=== PATIENT | male | born 1975 | race Caucasian/White ===

== ENCOUNTER 2020-08-11 19:08 | Emergency (ER) | payer BC, OTHER ==
--- NOTE | 2020-08-11 19:37 | EDM.PDOC ---
ED HPI GENERAL MEDICAL PROBLEM - General Chief Complaint: Neuro Symptoms/Deficits Stated Complaint: numbness to left side of face Time Seen by Provider: 08/11/20 19:19 Source of Information: Reports: Patient History Limitations: Reports: No Limitations - History of Present Illness INITIAL COMMENTS - FREE TEXT/NARRATIVE: The patient presents with left sided facial numbness and weakness. He says this all started on Tuesday. He says his face is not really numb but it feels funny. He also cannot close his eye fully on the left. He drools sometimes when drinking water. He has no fever, chills, cough, chest pain, shortness of breath, abdominal pain, nausea or vomiting. He has no numbness or weakness in his arms or legs. He has no headache. He has no double vision or blurred vision. This has never happened to him before. He has no medical problems. Onset: Gradual Duration: Day(s): (4) Severity: Moderate Improves with: Reports: None Worsens with: Reports: None Associated Symptoms: Reports: No Other Symptoms - Related Data Allergies Allergy/AdvReac Type Severity Reaction Status Date / Time No Known Allergies Allergy Verified 08/11/20 19:17 Home Meds: Home Meds predniSONE [Prednisone] 60 mg PO DAILY #21 tablet 08/11/20 [Rx] Past Medical History - Past Surgical History HEENT Surgical History: Reports: Adenoidectomy, Naso-Sinus Surgery, Tonsillectomy GI Surgical History: Reports: Appendectomy Musculoskeletal Surgical History: Reports: Shoulder Surgery Dermatological Surgical History: Reports: Other (See Below) Social & Family History - Tobacco Use Tobacco Use Status *Q: Never Tobacco User - Caffeine Use Caffeine Use: Reports: Soda - Recreational Drug Use Recreational Drug Use: No ED ROS GENERAL - Review of Systems Review Of Systems: See Below Constitutional: Reports: No Symptoms HEENT: Reports: No Symptoms Respiratory: Reports: No Symptoms Cardiovascular: Reports: No Symptoms Endocrine: Reports: No Symptoms GI/Abdominal: Reports: No Symptoms : Reports: No Symptoms Musculoskeletal: Reports: No Symptoms Skin: Reports: No Symptoms Neurological: Reports: Numbness (left face), Weakness (left face) ED EXAM, NEURO - Physical Exam Exam: See Below Exam Limited By: No Limitations General Appearance: Alert, No Apparent Distress Ears: Normal External Exam Nose: Normal Inspection Head Exam: Atraumatic, Normocephalic Neck: Normal Inspection Respiratory/Chest: No Respiratory Distress, Lungs Clear, Normal Breath Sounds Cardiovascular: Regular Rate, Rhythm, No Edema, No Murmur GI/Abdominal: Soft, Non-Tender, No Organomegaly, No Mass Neurological: Alert, Oriented x 3, Other (Equal arm and leg strenght. Left side forehead move slightly compared to right. Mild facial droop. Mild decreased sensation with touch to his face.) Course - Vital Signs Last Recorded V/S: Last Vital Signs Temp 96.5 F L 08/11/20 19:14 Pulse 89 08/11/20 19:14 Resp 16 08/11/20 19:14 BP 164/106 H 08/11/20 19:14 Pulse Ox 95 08/11/20 19:14 - Re-Assessments/Exams Free Text/Narrative Re-Assessment/Exam: 08/11/20 19:37 He has Galarza's palsy. No further work up is needed. I will get him on some prednisone for a week. Departure - Departure Time of Disposition: 19:40 Disposition: Home, Self-Care 01 Condition: Good Clinical Impression: Galarza's palsy - Discharge Information *PRESCRIPTION DRUG MONITORING PROGRAM REVIEWED*: Not Applicable *COPY OF PRESCRIPTION DRUG MONITORING REPORT IN PATIENT ALEXANDRA: Not Applicable Prescriptions: predniSONE [Prednisone] 60 mg PO DAILY #21 tablet Referrals: PCP,None [Primary Care Provider] - Desiree Borrero MD [Physician] - 1 Week Additional Instructions: Take the prednisone 60mg daily for 7 days. Use artificial tears 2 drops 4 times per day. Wear an eye patch at night to protect your eye. Follow up with Dr Borrero within a week. Please return if you are worse. Sepsis Event Note (ED) - Evaluation Sepsis Screening Result: No Definite Risk - Focused Exam Vital Signs: Vital Signs Temp Pulse Resp BP Pulse Ox 08/11/20 19:14 96.5 F L 89 16 164/106 H 95
== END 2020-08-11 19:50 | disposition home or self-care (01) ==
LOC: JD.ED 19:08
DX: G51.0 Bell's palsy (principal)
CPT/HCPCS: 99283

== ENCOUNTER 2023-06-07 18:49 | Emergency (ER) | payer BC ==
[2023-06-07] MEDS: Diazepam 5 MG Tab PO ONE (20:05)
[2023-06-07] MEDS: Ketorolac 15 MG/ML SDV IVPUSH ONE (21:36)
[2023-06-07] MEDS: fentaNYL 100 MCG/2 ML SDV IVPUSH ONE (21:39)
[2023-06-07 21:58] LABS: BASOPHILS ABSOLUTE AUTO 0.1 K/mm3 (0.0-0.2); BASOPHILS PERCENT AUTO 0.6 % (0.0-1.0); EOSINOPHILS ABSOLUTE AUTO 0.3 K/mm3 (0.0-0.4); EOSINOPHILS PERCENT AUTO 3.2 % (0.0-6.0); HEMATOCRIT 46.9 % (42.0-52.0); HEMOGLOBIN 16.6 gm/dl (14.0-18.0); IMMATURE GRAN ABSOLUTE AUTO 0.05 K/mm3 (0.00-0.05); IMMATURE GRAN PERCENT AUTO 0.6 % (0.0-0.4); LYMPHOCYTES ABSOLUTE AUTO 2.6 K/mm3 (1.0-4.8); LYMPHOCYTES PERCENT AUTO 30.9 % (24.0-44.0); MEAN CORPUSCULAR HEMOGLOBIN 30.3 pg (28.0-32.0); MEAN CORPUSCULAR HGB CONC 35.4 g/dl (32.0-36.0); MEAN CORPUSCULAR VOLUME 85.6 fl (83.0-99.0); MEAN PLATELET VOLUME 10.1 fl (9.4-12.4); MONOCYTES ABSOLUTE AUTO 0.7 K/mm3 (0.0-0.8); MONOCYTES PERCENT AUTO 8.6 % (0.0-8.0); NEUTROPHILS ABSOLUTE AUTO 4.8 K/mm3 (1.8-7.7); NEUTROPHILS PERCENT AUTO 56.1 % (41.0-71.0); PLATELET COUNT,PLT 381 K/mm3 (150-400); RED BLOOD CELL COUNT 5.48 M/mm3 (4.52-5.90); WHITE BLOOD CELL COUNT,WBC 8.52 K/mm3 (3.9-11.3)
[2023-06-07 22:19] LABS: A/G RATIO 1.4 (1-2); ALBUMIN 4.3 g/dl (3.4-5.0); ANION GAP 10.3 (5-15); BILIRUBIN TOTAL 0.3 mg/dL (0.2-1.0); BUN/CREATININE RATIO 17.1 (14-18); CALCIUM 9.5 mg/dL (8.5-10.1); CREATININE 1.4 mg/dL (0.7-1.3); EST CRCL DRUG DOSING (CG) 63.79 mL/min; POTASSIUM,K 4.3 mEq/L (3.5-5.1); PROTEIN TOTAL,TP 7.4 g/dl (6.4-8.2)
== END 2023-06-07 22:46 | disposition home or self-care (01) ==
LOC: JD.ED 18:49
DX: M62.838 Other muscle spasm (principal); E78.00 Pure hypercholesterolemia, unspecified; F17.210 Nicotine dependence, cigarettes, uncomplicated; Z79.899 Other long term (current) drug therapy; Z86.16 Personal history of COVID-19
CPT/HCPCS: 36415; 71045; 71045-26; 80053; 85025; 96374; 96375; 99283-25; A9270-GY; J1885; J3010

== ENCOUNTER 2023-06-08 17:54 | Emergency (ER) | payer BC ==
[2023-06-08] MEDS: HYDROmorphone 1 MG/ML Syringe IM ONE (18:31)
[2023-06-08] MEDS: predniSONE 10 MG Tab PO ONE (18:32)
== END 2023-06-08 19:55 | disposition home or self-care (01) ==
LOC: JD.ED 17:54
DX: M25.512 Pain in left shoulder (principal); E78.00 Pure hypercholesterolemia, unspecified; Z86.16 Personal history of COVID-19; Z79.899 Other long term (current) drug therapy
CPT/HCPCS: 96372; 99283; J1170; J7512